=== PATIENT | female | born 1940 | race Caucasian/White ===

== ENCOUNTER 2023-03-03 17:10 | Emergency (ER) | payer OTHER ==
[~2023-03-03] VITALS: Ht 160 cm; Wt 72.6 kg
[2023-03-03 18:20] LABS: BASOPHILS % (AUTO) 0.6 % (0.0-5.0); EOSINOPHILS % (AUTO) 1.1 % (0.0-8.0); HEMATOCRIT 37.1 % (36-48); LYMPHOCYTES % (AUTO) 25.5 % (21.0-51.0); MEAN CORPUSCULAR HEMOGLOBIN 30.6 pg (27.0-33.0); MEAN CORPUSCULAR HGB CONC 32.3 g/dL (32.0-36.0); MEAN CORPUSCULAR VOLUME 94.6 fL (79-99); MONOCYTES % (AUTO) 7.7 % (3.0-13.0); NEUTROPHILS % (AUTO) 64.6 % (40.0-77.0); PLATELET COUNT (AUTO) 275 K/uL (130-400); RED BLOOD CELL COUNT(AUTO) 3.92 MIL/uL (4.00-5.50); RED CELL DISTRIBUTION WIDTH 13.2 % (11.0-15.5); WHITE BLOOD COUNT (AUTO) 6.5 K/uL (4.8-10.8)
[2023-03-03 18:43] LABS: ALBUMIN 3.5 g/dL (3.5-5.0); CREATININE 0.9 mg/dL (0.5-1.5); POTASSIUM 4.1 mmol/L (3.5-5.1)
[2023-03-03] MEDS ORDERED: IOHEXOL-350 75 ML VIAL IV ONE (19:03)
[2023-03-03 19:18] LABS: APPEARANCE,URINE CLEAR (CLEAR); BILIRUBIN,URINE NEGATIVE (NEGATIVE); COLOR,URINE LIGHT-YELLOW (YELLOW); GLUCOSE, URINE (UA) NEGATIVE (NEGATIVE); KETONES,URINE NEGATIVE (NEGATIVE); LEUKOCYTE ESTERASE ,URINE NEGATIVE Leu/uL (NEGATIVE); NITRATE,URINE NEGATIVE (NEGATIVE); OCCULT BLOOD,URINE NEGATIVE (NEGATIVE); PROTEIN,URINE NEGATIVE (NEGATIVE); UROBILINOGEN,URINE 0.2 mg/dL (0.2-1.0)
[2023-03-03 19:19] LABS: SQUAMOUS EPITHELIAL CELL,UR RARE /HPF (0-2); WBC,URINE 0-1 /HPF (0-1)
[2023-03-03 22:34] VITALS: BP 141/60
== END 2023-03-03 22:36 | disposition home or self-care (01) ==
LOC: EDH 17:10
DX: K59.00 Constipation, unspecified (principal); R10.9 Unspecified abdominal pain; I48.20 Chronic atrial fibrillation, unspecified; G20 Parkinson's disease; Z87.440 Personal history of urinary (tract) infections
CPT/HCPCS: 99285; 74177; 84484; 80053; 83690; 85025; 81001; 36415; 93005; Q9967

== ENCOUNTER 2023-03-17 16:35 | Emergency (ER) | payer OTHER ==
[~2023-03-17] VITALS: Ht 167.6 cm; Wt 65.8 kg
[2023-03-17 17:45] LABS: BASOPHILS % (AUTO) 0.2 % (0.0-5.0); EOSINOPHILS % (AUTO) 0.5 % (0.0-8.0); HEMATOCRIT 35.5 % (36-48); LYMPHOCYTES % (AUTO) 14.5 % (21.0-51.0); MEAN CORPUSCULAR HEMOGLOBIN 30.9 pg (27.0-33.0); MEAN CORPUSCULAR HGB CONC 32.7 g/dL (32.0-36.0); MEAN CORPUSCULAR VOLUME 94.4 fL (79-99); MONOCYTES % (AUTO) 5.1 % (3.0-13.0); NEUTROPHILS % (AUTO) 78.8 % (40.0-77.0); PLATELET COUNT (AUTO) 215 K/uL (130-400); RED BLOOD CELL COUNT(AUTO) 3.76 MIL/uL (4.00-5.50); RED CELL DISTRIBUTION WIDTH 13.4 % (11.0-15.5); WHITE BLOOD COUNT (AUTO) 8.5 K/uL (4.8-10.8)
[2023-03-17 17:54] LABS: CREATININE 1.3 mg/dL (0.5-1.5); POTASSIUM 5.2 mmol/L (3.5-5.1)
[2023-03-17 17:56] LABS: INR 1.22 (0.85-1.15)
[2023-03-17 17:57] LABS: PARTIAL THROMBOPLASTIN TIME 33.2 SEC (26.3-35.5)
[2023-03-17 18:03] LABS: ALBUMIN 3.6 g/dL (3.5-5.0); TOTAL PROTEIN, SERUM 7.1 g/dL (6.0-8.3)
[2023-03-17] MEDS ORDERED: MELO-106 PO (21:30)
[2023-03-17] MEDS ORDERED: CYCL10TA16 PO (21:30)
[2023-03-18 03:35] VITALS: BP 116/54
[2023-03-20] MEDS ORDERED: LATA2.5D14 OU (20:16)
[2023-03-20] MEDS ORDERED: ROTI1PAT10 TD (20:16)
[2023-03-20] MEDS ORDERED: CALC-322 PO (20:16)
[2023-03-20] MEDS ORDERED: RIVA20TA PO (20:16)
[2023-03-20] MEDS ORDERED: CARB-37 PO (20:16)
[2023-03-20] MEDS ORDERED: METO25TA6 PO (20:16)
[2023-03-20] MEDS ORDERED: DORZ10DR10 OS (20:16)
== END 2023-03-18 04:12 | disposition home or self-care (01) ==
LOC: EDH 16:35
DX: M48.50XA Collapsed vertebra, not elsewhere classified, site unspecified, initial encounter for fracture (principal); E86.0 Dehydration; F02.80 Dementia in other diseases classified elsewhere, unspecified severity, without behavioral disturbance, psychotic disturbance, mood disturbance, and anxiety; W18.39XA Other fall on same level, initial encounter; Y93.89 Activity, other specified; Y92.89 Other specified places as the place of occurrence of the external cause; Y99.8 Other external cause status
CPT/HCPCS: 36415; 70450; 71045; 72070; 72100; 72125; 72170; 72220; 80053; 82550; 83605; 85025; 85610; 85730